=== PATIENT | male | born 2000 | race Caucasian/White ===

== ENCOUNTER 2024-11-16 02:07 | Emergency (ER) | payer OTHER, SELFPAY ==
[2024-11-16 02:10] VITALS: BP 157/99; PULSE 81; RESP 18; TEMP 36.6; O2SAT 98; BMI 27.8
--- NOTE | 2024-11-16 02:50 | CT_ITS ---
PROCEDURE: ABDOMEN/PELVIS WITHOUT CONT 11/16/2024 REASON FOR EXAM: RIGHT FLANK PAIN TECHNIQUE: Abdomen and pelvis CT without intravenous contrast. Noncontrast technique limits evaluation of the abdominal and pelvic viscera. Coronal and Sagittal reconstruction series were provided. One or more dose reduction techniques were used (e.g., Automated exposure control, adjustment of the mA and/or kV according to patient size, use of iterative reconstruction technique). PATIENT PREPARATION: Per protocol ORAL CONTRAST TYPE: None. COMPARISON: None. FINDINGS: Mild fullness of the right collecting system, possibly recent passage of a calculus versus an ascending urinary tract infection. Diffuse colonic diverticulosis. Mild thickening of the sigmoid colon, underdistention/spasm versus mild colitis. An appendicolith is noted in the appendix without associated acute appendicitis. The visualized lung bases are unremarkable. Normal unenhanced liver. Normal gallbladder and extrahepatic biliary system. Normal unenhanced spleen. Normal pancreas. Normal bilateral adrenal glands. Normal size of the right kidney. There is no right renal mass. There are no right renal calculi. Normal size of the left kidney. There is no left renal mass. There are no left renal calculi. There is no left hydronephrosis. Normal visualized left ureter. Normal visualized stomach. Normal small intestine. There is no demonstrated peritoneal fluid. Normal abdominal aorta. Normal inferior vena cava. Normal retroperitoneum. Normal urinary bladder. There is no pelvic mass lesion or lymphadenopathy. There is no pelvic fluid. Normal abdominal wall. Normal osseous structures. CT/Abdomen/Pelvis without Cont IMPRESSION: 1. Mild fullness of the right collecting system, possibly recent passage of a c alculus versus an ascending urinary tract infection. 2. Diffuse colonic diverticulosis. 3. Mild thickening of the sigmoid colon, underdistention/spasm versus mild coli tis. Reading Location: [facility]
[2024-11-16 02:57] LABS: Bacteria 0 SEEN /hpf (None Seen); Mucous, Urine 0 SEEN /hpf (<or=2+); Red Blood Cells-Urine 0 SEEN /hpf (0-5); Squamous Epithelial Cells - UA 0 SEEN /hpf (0-5); White Blood Cells 0 SEEN /hpf (0-5)
[2024-11-16] MEDS: 0.9% Normal Saline (1000mL) 1,000 ML 999 ML IV (02:58)
[2024-11-16] MEDS: Ketorolac 30 MG/ML Syringe IV (02:58)
[2024-11-16] MEDS: Ondansetron 4 MG/2 ML Vial IV (02:59)
[2024-11-16 03:00] LABS: Absolute Lymphocyte Count 2.91 X10^3/uL (0.83-4.51); Absolute Neutrophil Count 3.8 X10^3/uL (2.0-7.7); Basophil# 0.05 X10^3/uL; Basophil% 0.7 % (0-1); Color, Urine Yellow (Yellow); Eosinophil# 0.15 X10^3/uL; Glucose, Dipstick Normal (Normal); Hematocrit 47.5 % (40-54); Hemoglobin 16.4 g/dL (13.0-16.5); Ketone-Dipstick Negative (Negative); Leukocyte Esterase-Dipstick Negative /ul (Negative); Lymphocyte # 2.91 X10^3/ul (0.83-4.51); Lymphocyte % 38.5 % (19-41); Mean Corp Hgb Conc 34.5 g/dL (32-36); Mean Corpuscular Hgb 29.6 pg (27.0-32.0); Mean Corpuscular Volume 85.7 fL (80-94); Mean Platelet Vol. 11.2 fl (6.2-12.0); Monocyte# 0.59 X10^3/uL; Monocyte% 7.8 % (0-10); NRBC Flagged by Analyzer 0 % (0-5); Neutrophil # 3.83 X10^3/uL (2.7-7.7); Neutrophil % 50.6 % (47-70); Nitrite-Dipstick Negative (Negative); Occult Blood-Urine Negative /ul (Negative); Platelet Count 182 K/mm3 (150-450); Protein-Dipstick 15 mg/dl (Negative); RBC Distribution Width SD 37.7 fl (35.1-43.9); Red Blood Count 5.54 M/mm3 (4.6-6.2); Specific Gravity, Urine 1.015 (1.002-1.030); Urine Bilirubin Dipstick Negative (Negative); Urine Clarity Clear (Clear); Urine Urobilinogen Normal (Normal); Urine pH 6.5 (5.0 - 8.0); White Blood Count 7.6 K/mm3 (4.4-11.0)
[2024-11-16 03:13] LABS: Amorphous Sediment 3+
[2024-11-16] MEDS: Morphine 4 MG/ML Syringe IV (03:47)
[2024-11-16 03:51] LABS: Anion Gap 12 (5-15); BUN 19 mg/dL (4-19); BUN/Creat Ratio 16.5 RATIO (10-20); Calcium,Total 9.4 mg/dL (7.6-11.0); Carbon Dioxide 25.3 mmol/L (21.0-32.0); Chloride 102 mmol/L (98-108); Creatinine, Serum 1.12 mg/dL (0.70-1.20); EST Glomerular Filtration Rate 93 (>60); Estimated Creatinine Clearance 112.66 ml/min (50-250); Glucose 93 mg/dL (70-99); Potassium 3.6 mmol/L (3.3-5.1); Sodium Level 140 mmol/L (133-145)
[2024-11-16 04:08] VITALS: BP 145/74; PULSE 74; RESP 18; O2SAT 96
--- NOTE | 2024-11-16 04:37 | EX.ED.DYSGE1 ---
HPI History of Present Illness Chief Complaint: Flank Pain Informant: patient Narrative Narrative: Patient is a 24-year-old male with no significant past medical history. He states he went to bed normally and then awoke suddenly roughly an hour prior to arrival with sharp right sided back pain. He states there has been no recent trauma or excessive activity. He denies any loss of bowel or bladder control or IV drug use. He states it does not matter if he moves or lies down as no position helps make the pain better or worse. He does state that his mother has a history of kidney stones and he is concerned that he may have developed 1 based on his symptoms and therefore comes in for evaluation. PFSH PFS Medical History no medical history no medical history Home Medications ?Medication ?Instructions ?Recorded ?Last Taken ?Type NK 11/16/24 Unknown History Allergy/AdvReac Type Severity Reaction Status Date / Time No Known Allergies Allergy Verified 11/16/24 02:10 Family History no significant family his Surgical History (Updated 11/16/24 @ 02:13 by Heather Candelaria) History of repair of ACL Social History Smoking Status: Never smoker ROS ROS ED Constitutional Constitutional ED: Denies chills or fever(s) ENT ENT ED: Denies sore throat Cardiovascular Cardiovascular: Denies chest pain Respiratory/Chest Respiratory/Chest: Denies cough or dyspnea Gastrointestinal Gastrointestinal: Reports nausea; Denies abdominal pain, diarrhea or vomiting Genitourinary Genitourinary ED: Denies dysuria, hematuria or urinary frequency Musculoskeletal Musculoskeletal: Reports back pain Integumentary Denies rash Neurologic Neurologic: Denies headache(s) Hematologic/Lymphatic Hematologic/Lymphatic: Denies easy bleeding or easy bruising EXAM Physical Exam Const Vital Signs: 11/16/24 02:10 11/16/24 02:16 11/16/24 04:08 Temperature 97.8 F Temperature Source Oral Pulse Rate 81 74 Respiratory Rate 18 18 Respiratory Effort Normal Non-Labored Respiratory Pattern Normal Blood Pressure 157/99 H 145/74 H Blood Pressure Mean 118 97 Pulse Ox 98 96 Oxygen Delivery Method Room Air Room Air 11/16/24 04:38 Temperature 97.8 F Temperature Source Pulse Rate 83 Respiratory Rate 18 Respiratory Effort Respiratory Pattern Blood Pressure 145/68 H Blood Pressure Mean 93 Pulse Ox 96 Oxygen Delivery Method Positive well nourished and well developed General Appearance ED: well developed; Negative for pallor HEENT Reports moist mucous membranes Eyes PERRL and EOMs intact bilaterally General Eye ED: Negative for scleral icterus Neck supple Resp normal respiratory effort and clear to auscultation bilaterally Cardio regular rate and regular rhythm Rate: other Other Details: Heart is regular rate and rhythm without murmurs rubs or gallop Radial and carotid pulses are equal and symmetric GI normal to inspection, nondistended, normoactive bowel sounds, non-tender, non-distended and no masses GI Narrative: No voluntary guarding or rigidity or pulsatile mass Auscultation: normoactive bowel sounds Palpation: soft Back/Spine Back/Spine Narrative: Positive right CVA pain noted Extremity normal to inspection Neuro oriented x3, CN's II-XII intact bilaterally and no sensory deficits noted Sensorium / Orientation: alert Motor Exam: strength 5/5 throughout Psych mental status grossly normal Skin no rashes or lesions noted and no wounds Skin Narrative: No overlying soft tissue changes to suggest trauma or infection General Skin Exam: Negative for jaundice or pallor MDM MDM MDM Narrative Medical decision making narrative: Patient arrived to the ER hypertensive but otherwise with stable vitals. He reported going to bed without any issues and then waking up with right flank pain that is constant and does not improve or worsen with position. History and exam is most consistent with kidney stone patient could also have UTI versus pyelonephritis. Secondary to this basic blood work was obtained with urine sample and a noncontrast CT. labs showed no signs of acute kidney injury or signs of UTI/pyelonephritis. CT scan did not reveal an obvious kidney stone but did state that his collecting system was dilated which could relate to a recently passed stone. He does have an appendicolith but there is no surrounding inflammatory changes to suggest appendicitis. Also he does not have pain over McBurney's point on exam. After receiving medication in the ER the patient had resolution of this pain. At this time he does not have ASA he does not have urosepsis and even though there is an appendicolith there is no physical exam findings concerning for appendicitis and the CT scan does not show inflammatory changes to suggest this as the cause of his pain. Based on his exam and CT scan I do feel he truly had a stone which was recently passed but without ASA or urosepsis there is no need for further workup and he is otherwise safe for discharge. History & Record Review Discussion w/independent historian: Patient Lab Data Attestation: I reviewed the patient's lab results. Labs: Laboratory Results - last 24 hr 11/16/24 02:24 WBC 7.6 RBC 5.54 Hgb 16.4 Hct 47.5 MCV 85.7 MCH 29.6 MCHC 34.5 RDW Std Deviation 37.7 RDW Coeff of Josef 12.0 Plt Count 182 MPV 11.2 Immature Gran % (Auto) 0.400 Neut % (Auto) 50.6 Lymph % (Auto) 38.5 [place] % (Auto) 7.8 Eos % (Auto) 2.0 Baso % (Auto) 0.7 Absolute Neuts (auto) 3.8 Absolute Lymphs (auto) 2.91 Nucleated RBC % 0 Sodium 140 Potassium 3.6 Chloride 102 Carbon Dioxide 25.3 Anion Gap 12 BUN 19 Creatinine 1.12 Estim Creat Clear Calc 112.66 Est GFR (MDRD) Non-Af 93 BUN/Creatinine Ratio 16.5 Glucose 93 Calcium 9.4 Urine Color Yellow Urine Clarity Clear Urine pH 6.5 Ur Specific [place] 1.015 Urine Protein 15 H Urine Glucose (UA) Normal Urine Ketones Negative Urine Occult Blood Negative Urine Nitrite Negative Urine Bilirubin Negative Urine Urobilinogen Normal Ur Leukocyte Esterase Negative Urine RBC 0 SEEN Urine WBC 0 SEEN Ur Squamous Epith Cells 0 SEEN Amorphous Sediment 3+ Urine Bacteria 0 SEEN Urine Mucus 0 SEEN Radiography Diagnostic Testing: Clinical Impression(s) from Imaging Studies Abdomen/Pelvis CT 11/16/24 02:50 IMPRESSION: 1. Mild fullness of the right collecting system, possibly recent passage of a calculus versus an ascending urinary tract infection. 2. Diffuse colonic diverticulosis. 3. Mild thickening of the sigmoid colon, underdistention/spasm versus mild colitis. Reading Location: [place] [id number] Discharge Plan Triage Chief Complaint: Flank Pain ED Provider: Pierre Malave Dx/Rx/DC Orders Clinical Impression: Right flank pain Instructions: ED Flank Pain, Uncertain Cause, ED Kidney Stone, Passed Prescriptions: No Action NK Primary Care Provider: Care Physician,No Primary Referrals: Rg Lopez MD [Med Staff - Active Staff] - Care Physician,No Primary [Primary Care Provider] - Activity Restrictions/Additional Instructions: Your CT scan did not show a kidney stone but it did note fullness of your collecting system which could indicate you recently passed a stone. Your history and exam is most consistent with this. If your pain returns and does not improve with [id number] medications or you develop a fever or have any further concerns please return to the ER for repeat evaluation. Print Language: Malagasy Disposition Disposition: Home, Self Care Discharge Date/Time: 11/16/24 04:44
[2024-11-16 04:38] VITALS: BP 145/68; PULSE 83; RESP 18; TEMP 36.6; O2SAT 96
== END 2024-11-16 04:44 | disposition home or self-care (01) ==
PROVIDERS: Emergency Provider Emergency Medicine; Visit Provider Emergency Medicine
DX: R10.9 Unspecified abdominal pain (principal)
CPT/HCPCS: 74176; 80048; 81001; 85025; 96361; 96374; 96375; 99284; A4216; J2405